=== PATIENT | male | born 1960 | race Caucasian/White ===

== ENCOUNTER 2018-12-13 16:45 | Inpatient (IN) | payer SELFPAY ==
[~2018-12-13] VITALS: Ht 180.3 cm; Wt 113.7 kg
[2018-12-13] MEDS: ZOSYN 3.375GM+NS 50ML 50 ML IV SCH (08:00)
[2018-12-13] MEDS ORDERED: ONDANSETRON HCL 4 MG/2 ML VIAL ONE ×2 (17:20→20:07)
[2018-12-13] MEDS ORDERED: FAMOTIDINE/PF 20 MG/2 ML VIAL IV ONE (17:21)
[2018-12-13 17:28] LABS: CREATININE 1.1 mg/dL (0.5-1.5); POTASSIUM 3.6 mmol/L (3.5-5.1)
[2018-12-13 17:30] LABS: MEAN CORPUSCULAR HEMOGLOBIN 30.2 pg (27.0-33.0); MEAN CORPUSCULAR HGB CONC 34.2 g/dL (32.0-36.0); MEAN CORPUSCULAR VOLUME 88.3 fL (79-99); NUCLEATED RED BLOOD CELLS 0.1 % (0.0-0.19); PLATELET COUNT (AUTO) 195 K/uL (130-400); RED BLOOD CELL COUNT(AUTO) 5.21 MIL/uL (4.50-6.20); RED CELL DISTRIBUTION WIDTH 14.6 % (11.0-15.5); WHITE BLOOD COUNT (AUTO) 9.1 K/uL (4.8-10.8)
[2018-12-13 17:33] LABS: ALBUMIN 3.2 g/dL (3.5-5.0); BILIRUBIN,TOTAL 0.5 mg/dL (0.2-1.0); TOTAL PROTEIN, SERUM 6.8 g/dL (6.0-8.3)
[2018-12-13 17:46] LABS: BAND NEUTROPHILS % (MANUAL) 3 % (0-2); EOSINOPHILS % (MANUAL) 16 % (1-6); LYMPHOCYTES % (MANUAL) 5 % (22-44); MAN.DIFF COMMENT-IMPRESSION MANUAL DIFFERENTIAL; METAMYELOCYTES % 1 % (0-0); MONOCYTES % (MANUAL) 3 % (2-9); PLATELET MORPHOLOGY COMMENT ADEQUATE; REACTIVE LYMPHOCYTES 5 % (0-0); SEGMENTED NEUTROPHILS % 67 % (40-70)
[2018-12-13] MEDS ORDERED: MORPHINE SULFATE 2 MG/ML 1ML SYG ONE (18:00)
[2018-12-13] MEDS ORDERED: ACETAMINOPHEN EXTRA STRENGTH 500 MG TABLET ONE (19:17)
[2018-12-13 20:04] LABS: APPEARANCE,URINE Clear (CLEAR); BILIRUBIN,URINE Small (NEGATIVE); COLOR,URINE Dark Yellow (YELLOW); GLUCOSE, URINE (UA) Negative (NEGATIVE); KETONES,URINE Trace mg/dL (NEGATIVE); LEUKOCYTE ESTERASE ,URINE Negative (NEGATIVE); NITRATE,URINE Negative (NEGATIVE); OCCULT BLOOD,URINE Negative (NEGATIVE); PROTEIN,URINE POS 1+ mg/dL (NEGATIVE)
[2018-12-13] MEDS ORDERED: MORPHINE SULFATE 4 MG/1ML SYG ONE ×2 (20:17→23:25)
[2018-12-13 21:04] LABS: AMORPHOUS SEDIMENT,UR Few /LPF (None Seen); BACTERIA,URINE Few /HPF (None Seen); MUCUS,URINE Few LPF (None Seen); RBC,URINE 0-1 /HPF (0-1); SQUAMOUS EPITHELIAL CELL,UR None Seen /HPF (0-2); WBC,URINE None Seen /HPF (0-1)
[2018-12-13 21:36] LABS: AMPHET/METH SCREEN,URINE NEGATIVE (NEGATIVE); BARBITURATE SCREEN, URINE NEGATIVE (NEGATIVE); BENZODIAZEPINES SCREEN,URINE POSITIVE (NEGATIVE); CANNABINOID SCREEN,URINE NEGATIVE (NEGATIVE); COCAINE SCREEN,URINE NEGATIVE (NEGATIVE); OPIATE SCREEN,URINE POSITIVE (NEGATIVE); PHENCYCLIDINE SCREEN,URINE NEGATIVE (NEGATIVE)
[2018-12-13 21:37] LABS: HEMOGLOBIN A1C 5.6 % (4.0-6.0)
[2018-12-13 22:18] LABS: OCCULT BLOOD STOOL SINGLE ONLY POSITIVE (NEGATIVE)
[2018-12-13 22:36] LABS: CHOLESTEROL 161 mg/dL (<200); HDL CHOLESTEROL 126 mg/dL (29-71); LDL DIRECT 89 mg/dL (0-99); TRIGLYCERIDES 164 mg/dL (30-200)
--- NOTE | 2018-12-14 | NUR ---
PT IN BED, CONTINUES ON IV FLUIDS. AAO3. PERRLA. ACTIVE. ASKING FOR MORPHINE Q3. STATES HEADACHE. HAS BEEN STABLE. NOTED TO HAS SOB AND MINOR WHEEZING, REFUSES TO BE ON NASAL CANNULA.PATENT IV. CONTINUE ON ABTS. REQUESTING ICE CHIPS. INFORMED ABOUT NPO STATUS DUE TO PANCREATIC INFLAMMATION. Addendum: 12/15/18 at 0440 by XU BARON RN RN WRONG TIME. 12/15 AT 0000
[2018-12-14] MEDS ORDERED: ZOSYN 3.375GM+NS 50ML 50 ML IV ONE (00:02)
[2018-12-14 00:40] VITALS: BP 133/77
[2018-12-14] MEDS: LACTATED RINGERS 1000ML 1,000 ML IV SCH ×4 (00:40→21:00)
[2018-12-14] MEDS: MORPHINE SULFATE 4 MG/1ML SYG IV PRN ×6 (03:50→21:21)
[2018-12-14 04:00] VITALS: BP 127/78
[2018-12-14] MEDS: ZOSYN 3.375GM+NS 50ML 50 ML IV SCH ×3 (06:00→21:21)
[2018-12-14 07:00] LABS: POTASSIUM 3.4 mmol/L (3.5-5.1)
[2018-12-14 07:14] LABS: BASOPHILS % (AUTO) 0.4 % (0.0-5.0); EOSINOPHILS % (AUTO) 23.9 % (0.0-8.0); HEMATOCRIT 43.2 % (42-54); LYMPHOCYTES % (AUTO) 19.5 % (21.0-51.0); MEAN CORPUSCULAR HEMOGLOBIN 30.2 pg (27.0-33.0); MEAN CORPUSCULAR HGB CONC 34.2 g/dL (32.0-36.0); MEAN CORPUSCULAR VOLUME 88.3 fL (79-99); MONOCYTES % (AUTO) 12.7 % (3.0-13.0); NEUTROPHILS % (AUTO) 43.5 % (40.0-77.0); NUCLEATED RED BLOOD CELLS 0.2 % (0.0-0.19); PLATELET COUNT (AUTO) 189 K/uL (130-400); RED BLOOD CELL COUNT(AUTO) 4.89 MIL/uL (4.50-6.20); RED CELL DISTRIBUTION WIDTH 14.7 % (11.0-15.5); WHITE BLOOD COUNT (AUTO) 7.4 K/uL (4.8-10.8)
[2018-12-14 07:30] VITALS: BP 128/72
[2018-12-14] MEDS: PANTOPRAZOLE 40 MG/VIAL IVP SCH (08:38)
[2018-12-14] MEDS: ENOXAPARIN SODIUM 40 MG/0.4 ML SYRINGE SQ SCH (08:42)
[2018-12-14 11:00] VITALS: BP 117/58
--- NOTE | 2018-12-14 12:13 | NUR ---
SURGICAL CONSULT DR TAPIA PAGED AT 1205 HOURS FOR CONSULT ON PATIENT WITH GALLSTONES IN GALLBLADDER
--- NOTE | 2018-12-14 12:14 | NUR ---
GI CONSULT DR. JONES PATHAYDEN AT APPROX 12:09 FOR CONSULT REF OCCULT BLOOD IN STOOL.
--- NOTE | 2018-12-14 12:26 | NUR ---
INITIAL: Met with pt and son Matt this am to discuss dcp. Pt states that he lives alone. He is independent. Does not own any DME or receive services. Pt states he feels safe and comfortable to return home at pr. Low income packet provided to pt. CM to continue to follow and wait for Md recommendations. Addendum: 12/14/18 at 1227 by DACIA MEADE CM Amended: Links added.
[2018-12-14 16:00] VITALS: BP 147/82
[2018-12-14 19:00] VITALS: BP 135/74
[2018-12-14] MEDS: ONDANSETRON HCL 4 MG/2 ML VIAL IV PRN (19:58)
[2018-12-15] VITALS (7 sets, daily range): BP systolic 116–136; BP diastolic 69–82
--- NOTE | 2018-12-15 | NUR ---
PT IN BED, CONTINUES ON IV FLUIDS. AAO3. PERRLA. ACTIVE. ASKING FOR MORPHINE Q3. STATES HEADACHE. HAS BEEN STABLE. NOTED TO HAS SOB AND MINOR WHEEZING, REFUSES TO BE ON NASAL CANNULA.PATENT IV. CONTINUE ON ABTS. REQUESTING ICE CHIPS. INFORMED ABOUT NPO STATUS DUE TO PANCREATIC INFLAMMATION.
[2018-12-15] MEDS: MORPHINE SULFATE 4 MG/1ML SYG IV PRN ×7 (00:22→21:03)
[2018-12-15] MEDS: LACTATED RINGERS 1000ML 1,000 ML IV SCH ×3 (05:00→21:02)
[2018-12-15] MEDS: ZOSYN 3.375GM+NS 50ML 50 ML IV SCH ×2 (05:13→13:41)
--- NOTE | 2018-12-15 07:05 | NUR ---
3.4 POTASSIUM. VERONICA [employer] AWARE. STATED WOULD INPUT ORDERS.
[2018-12-15 08:50] LABS: BASOPHILS % (AUTO) 0.2 % (0.0-5.0); HEMATOCRIT 35.8 % (42-54); LYMPHOCYTES % (AUTO) 16.6 % (21.0-51.0); MEAN CORPUSCULAR HEMOGLOBIN 30.6 pg (27.0-33.0); MEAN CORPUSCULAR HGB CONC 34.8 g/dL (32.0-36.0); MEAN CORPUSCULAR VOLUME 87.9 fL (79-99); MONOCYTES % (AUTO) 9.8 % (3.0-13.0); NEUTROPHILS % (AUTO) 55.4 % (40.0-77.0); PLATELET COUNT (AUTO) 145 K/uL (130-400); RED BLOOD CELL COUNT(AUTO) 4.08 MIL/uL (4.50-6.20); RED CELL DISTRIBUTION WIDTH 14.3 % (11.0-15.5); WHITE BLOOD COUNT (AUTO) 10.3 K/uL (4.8-10.8)
[2018-12-15 09:01] LABS: CREATININE 1.1 mg/dL (0.5-1.5); POTASSIUM 3.2 mmol/L (3.5-5.1)
[2018-12-15] MEDS: PANTOPRAZOLE 40 MG/VIAL IVP SCH (09:02)
[2018-12-15] MEDS: ENOXAPARIN SODIUM 40 MG/0.4 ML SYRINGE SQ SCH (09:05)
[2018-12-15] MEDS: ONDANSETRON HCL 4 MG/2 ML VIAL IV PRN (21:03)
[2018-12-15] MEDS ORDERED: POTASSIUM CHLORIDE 20MEQ/100ML 100 ML IV PRN (21:15)
[2018-12-15] MEDS ORDERED: LIDOCAINE HCL-MPF 1% 2ML VIAL IVP PRN (21:15)
[2018-12-16] MEDS: ZOSYN 3.375GM+NS 50ML 50 ML IV SCH ×4 (00:01→22:37)
[2018-12-16] MEDS: MORPHINE SULFATE 4 MG/1ML SYG IV PRN ×5 (00:24→20:01)
[2018-12-16 03:00] VITALS: BP 125/68
[2018-12-16 05:15] LABS: MAGNESIUM 1.9 mg/dL (1.80-2.40); POTASSIUM 3.2 mmol/L (3.5-5.1)
[2018-12-16] MEDS ORDERED: MAGNESIUM 2GM PREMIX 50ML 50 ML IV PRN (06:30)
[2018-12-16] MEDS ORDERED: MAGNESIUM 2GM PREMIX 50ML 50 ML IV ONE (06:31)
[2018-12-16] MEDS: LACTATED RINGERS 1000ML 1,000 ML IV SCH (06:33)
[2018-12-16] MEDS ORDERED: POTASSIUM CHLORIDE 10% ELIXIR 20 MEQ/15 ML UDCUP PO PRN (06:45)
[2018-12-16] MEDS ORDERED: LIDOCAINE HCL-MPF 1% 2ML VIAL IVP PRN (06:45)
[2018-12-16] MEDS ORDERED: POTASSIUM CHLORIDE 20MEQ/100ML 100 ML IV PRN (06:45)
[2018-12-16 08:00] VITALS: BP 114/67
[2018-12-16] MEDS: ENOXAPARIN SODIUM 40 MG/0.4 ML SYRINGE SQ SCH (09:14)
[2018-12-16] MEDS: PANTOPRAZOLE 40 MG/VIAL IVP SCH (09:14)
[2018-12-16] MEDS: POTASSIUM CHLORIDE 20 MEQ ERTAB PO PRN ×3 (09:15→20:02)
[2018-12-16 11:00] VITALS: BP 126/69
[2018-12-16 16:00] VITALS: BP 144/72
[2018-12-16 19:00] VITALS: BP 129/72
[2018-12-16 23:00] VITALS: BP 120/70
[2018-12-17] VITALS (26 sets, daily range): BP systolic 110–141; BP diastolic 63–84
[2018-12-17] MEDS: MORPHINE SULFATE 4 MG/1ML SYG IV PRN ×3 (01:19→09:50)
[2018-12-17 05:07] LABS: BASOPHILS % (AUTO) 0.5 % (0.0-5.0); EOSINOPHILS % (AUTO) 39.2 % (0.0-8.0); LYMPHOCYTES % (AUTO) 15.7 % (21.0-51.0); MEAN CORPUSCULAR HEMOGLOBIN 30.4 pg (27.0-33.0); MEAN CORPUSCULAR HGB CONC 34.6 g/dL (32.0-36.0); MEAN CORPUSCULAR VOLUME 87.9 fL (79-99); MONOCYTES % (AUTO) 5.6 % (3.0-13.0); NUCLEATED RED BLOOD CELLS 0.1 % (0.0-0.19); PLATELET COUNT (AUTO) 205 K/uL (130-400); RED BLOOD CELL COUNT(AUTO) 4.21 MIL/uL (4.50-6.20); RED CELL DISTRIBUTION WIDTH 14.2 % (11.0-15.5); WHITE BLOOD COUNT (AUTO) 7.6 K/uL (4.8-10.8)
[2018-12-17 05:17] LABS: CREATININE 0.8 mg/dL (0.5-1.5); POTASSIUM 3.6 mmol/L (3.5-5.1)
[2018-12-17] MEDS: ZOSYN 3.375GM+NS 50ML 50 ML IV SCH (05:31)
[2018-12-17 06:38] LABS: INR 0.99 (0.85-1.15); PARTIAL THROMBOPLASTIN TIME 30.5 SEC (26.3-35.5); PROTHROMBIN TIME 10.4 SEC (9.6-11.6)
[2018-12-17] MEDS: PANTOPRAZOLE 40 MG/VIAL IVP SCH (09:00)
[2018-12-17] MEDS: FAMOTIDINE/PF 20 MG/2 ML VIAL IV SCH ×2 (09:00→20:21)
[2018-12-17] MEDS: ENOXAPARIN SODIUM 40 MG/0.4 ML SYRINGE SQ SCH (09:00)
--- NOTE | 2018-12-17 10:16 | NUR ---
Taken via hospital bed for lap rustam. Left in stable condition.
[2018-12-17] MEDS ORDERED: LACTATED RINGERS 1000ML 1,000 ML IV ONE (10:22)
[2018-12-17] MEDS ORDERED: BUPIVACAINE/PF 0.25% 30ML VIAL IJ ONE (10:28)
[2018-12-17] MEDS ORDERED: FENTANYL CITRATE PF 50 MCG/1 ML 2ML VIAL ONE ×2 (11:15)
[2018-12-17] MEDS ORDERED: MIDAZOLAM HCL 1 MG/ML 2ML VIAL ONE (11:15)
[2018-12-17] MEDS ORDERED: PROPOFOL 10 MG/ML 20ML VIAL IV ONE (11:18)
[2018-12-17] MEDS ORDERED: ONDANSETRON HCL 4 MG/2 ML VIAL ONE (11:46)
[2018-12-17] MEDS ORDERED: MEPERIDINE-PF 25 MG/ML SYG ONE ×2 (12:27→12:36)
[2018-12-17] MEDS ORDERED: MEPERIDINE HCL/PF 25 MG/0.5 ML AMPUL SQ PRN (13:45)
--- NOTE | 2018-12-17 14:23 | NUR ---
Called Dr. Butcher's office regarding consult for positive occult blood.
--- NOTE | 2018-12-17 17:05 | NUR ---
Dr. Butcher's office, Geno called back stated Dr. Butcher said pt. does not need a colonoscopy or endoscopy, but recommends he be discharged on Protonix.
[2018-12-17] MEDS: MEPERIDINE HCL/PF 25 MG/0.5 ML AMPUL IVP PRN (20:22)
[2018-12-18] VITALS: BP 148/80
[2018-12-18] MEDS: ACETAMINOPHEN-CODEINE 300/30MG TAB PO PRN ×3 (00:26→13:03)
[2018-12-18] MEDS: MEPERIDINE HCL/PF 25 MG/0.5 ML AMPUL IVP PRN (03:36)
[2018-12-18 04:22] VITALS: BP 144/78
[2018-12-18 05:14] LABS: CREATININE 0.8 mg/dL (0.5-1.5); POTASSIUM 3.7 mmol/L (3.5-5.1)
[2018-12-18 05:15] LABS: EOSINOPHILS % (AUTO) 21.1 % (0.0-8.0); HEMATOCRIT 38.1 % (42-54); LYMPHOCYTES % (AUTO) 16.1 % (21.0-51.0); MEAN CORPUSCULAR HEMOGLOBIN 30.1 pg (27.0-33.0); MEAN CORPUSCULAR HGB CONC 34.5 g/dL (32.0-36.0); MEAN CORPUSCULAR VOLUME 87.2 fL (79-99); MONOCYTES % (AUTO) 8.3 % (3.0-13.0); NEUTROPHILS % (AUTO) 53.5 % (40.0-77.0); PLATELET COUNT (AUTO) 211 K/uL (130-400); RED BLOOD CELL COUNT(AUTO) 4.36 MIL/uL (4.50-6.20); RED CELL DISTRIBUTION WIDTH 14.2 % (11.0-15.5); WHITE BLOOD COUNT (AUTO) 5.7 K/uL (4.8-10.8)
[2018-12-18 05:20] LABS: ALBUMIN 2.4 g/dL (3.5-5.0); BILIRUBIN,TOTAL 0.5 mg/dL (0.2-1.0); TOTAL PROTEIN, SERUM 6.7 g/dL (6.0-8.3)
[2018-12-18 08:00] VITALS: BP 130/74
[2018-12-18] MEDS: FAMOTIDINE/PF 20 MG/2 ML VIAL IV SCH (08:18)
[2018-12-18] MEDS: ENOXAPARIN SODIUM 40 MG/0.4 ML SYRINGE SQ SCH (08:19)
[2018-12-18] MEDS ORDERED: PANT40TA25 PO (08:43)
[2018-12-18 12:00] VITALS: BP 134/71
== END 2018-12-18 14:40 | disposition home or self-care (01) | DRG 417 ==
LOC: EDH 16:45 → EDHIP 16:46 → 3BH 12-14 00:40
PROVIDERS: ADMIT Hospitalist; ATTEND Hospitalist
PROC: 0FT44ZZ Resection of Gallbladder, Percutaneous Endoscopic Approach (ICD-10-PCS; principal; 2018-12-17 11:15)
DX: K85.10 Biliary acute pancreatitis without necrosis or infection (principal); J18.9 Pneumonia, unspecified organism; J47.0 Bronchiectasis with acute lower respiratory infection; J98.11 Atelectasis; K92.2 Gastrointestinal hemorrhage, unspecified; K80.20 Calculus of gallbladder without cholecystitis without obstruction; Z88.1 Allergy status to other antibiotic agents
CPT/HCPCS: 36415; 71045; 74176; 76705; 80048; 80053; 80061; 80305; 81001; 82270; 82550; 83036; 83690; 83735; 84132; 84484; 85025; 85610; 85730; 87046; 87324; 93005; C9113; G0378; G0480; J1650; J2175; J2250; J2270; J2405; J2543; J2704; J3010; J3475; J3480; J3490; J7030; J7120